=== PATIENT | female | born 1980 | race Asian ===

== ENCOUNTER 2024-07-24 06:35 | Day surgery (SDC) | payer MEDICAID, SELFPAY ==
[2024-07-24] VITALS (10 sets, daily range): BP systolic 118–167; BP diastolic 78–118; PULSE 64–81; RESP 12–21; TEMP 36.2; O2SAT 98–100; BMI 33.5
[2024-07-24 07:10] LABS: HCG Qualitative,Urine Negative
[2024-07-24] MEDS: SODIUM CHLORIDE 0.9% 500 ML 500 ML 20 ML IV (07:50)
[2024-07-24] MEDS: fentaNYL CIT INJ 50 mCg/ML AMP 2ML (ASD USE ONLY) IV (07:51)
[2024-07-24] MEDS: DiphenhydrAMINE INJ 50 MG/ML VIAL 25 MG IV (07:52)
[2024-07-24] MEDS: MIDAZOLAM INJ 1 MG/ML VIAL 2 ML (ASD USE ONLY) 2 MG IV (07:56)
--- NOTE | 2024-07-24 09:03 | SUR.PHASEII ---
0830 Pt more awake and alert. Denies pain or N/. Abd soft. Cara PO fluids. 0850 Pt assessment unchanged. No complaints. Amb with steady gait. Able to dress self. Pt and mother given dc instructions. Both state understanding. Pt meets dc criteria. Await transport to take home.
--- NOTE | 2024-07-24 09:55 | SUR.PHASEII ---
1030 Pt and mother remain in waiting room. Pt with no complaints. Fluids offered and denied. Await transport.
--- NOTE | 2024-07-24 10:27 | SUR.PHASEII ---
1004 Transport arrived for pt and mother. Pt with no complaints. Home via transport with mother assist. Condition stable.
== END 2024-07-24 10:04 | disposition home or self-care (01) ==
PROVIDERS: PCP Family Medicine; Referring Provider Surgery; Visit Provider Surgery
PROC: 0DBE8ZX Excision of Large Intestine, Via Natural or Artificial Opening Endoscopic, Diagnostic (ICD-10-PCS; CPT 45380; principal; 2024-07-24 07:30)
DX: Z12.11 Encounter for screening for malignant neoplasm of colon (principal); K64.1 Second degree hemorrhoids; K64.4 Residual hemorrhoidal skin tags; Z80.0 Family history of malignant neoplasm of digestive organs; E11.9 Type 2 diabetes mellitus without complications; Z79.84 Long term (current) use of oral hypoglycemic drugs
CPT/HCPCS: 45378; 81025; J1200; J2250; J3010; J7040